=== PATIENT | female | born 1945 | race Caucasian/White ===

== ENCOUNTER 2022-10-28 23:54 | Emergency (ER) | payer OTHER ==
[~2022-10-28] VITALS: Ht 149.9 cm; Wt 50.0 kg
[2022-10-29 00:01] VITALS: BP 200/76
== END 2022-10-29 05:31 | disposition left against medical advice (07) ==
LOC: ER 23:54
DX: Z53.21 Procedure and treatment not carried out due to patient leaving prior to being seen by health care provider (principal); I49.9 Cardiac arrhythmia, unspecified
CPT/HCPCS: 82962; 93005; 99281